=== PATIENT | female | born 1990 | race Caucasian/White ===

== ENCOUNTER 2017-03-21 17:16 | Emergency (ER) | payer MEDICAID, OTHER ==
[~2017-03-21] VITALS: Ht 154.9 cm; Wt 64.2 kg
[~2017-03-21 17:16] MED LIST: PREN1TAB49 PO
[2017-03-21 17:22] VITALS: Ht 154.9 cm; Wt 64.2 kg
[2017-03-21] MEDS ORDERED: SOD CHLORIDE 0.9% 1,000 ML IV STA (17:54)
[2017-03-21] MEDS ORDERED: ACETAMINOPHEN 325 MG TAB PO STA (17:54)
[2017-03-21] MEDS ORDERED: FAMOTIDINE 20 MG INJ IV ONE (18:00)
[2017-03-21 18:26] LABS: BASOPHILS % 0.1 % (0.0-2.0); EOSINOPHILS # 0.1 10^3/ul (0.0-0.5); EOSINOPHILS % 0.5 % (0.0-7.0); HEMOGLOBIN 11.8 g/dl (12.0-16.0); LYMPHOCYTES % 19.9 % (15.0-51.0); MEAN CORPUSCULAR HEMOGLOBIN 29.1 pg (29.0-33.0); MEAN CORPUSCULAR HGB CONC 34.7 g/dl (32.0-37.0); MEAN CORPUSCULAR VOLUME 83.7 fl (82.0-101.0); MEAN PLATELET VOLUME 11.1 fl (7.4-10.4); MONOCYTE # 0.6 10^3/ul (0.3-0.9); MONOCYTES % 5.5 % (0.0-11.0); NEUTROPHIL # 7.4 10^3/ul (1.6-7.5); NEUTROPHILS % 73.6 % (39.0-77.0); PLATELET COUNT 175 10^3/UL (140-415); RED BLOOD COUNT 4.06 10^6/ul (4.20-5.40); RED CELL DISTRIBUTION WIDTH 11.7 % (11.5-14.5)
--- NOTE | 2017-03-21 18:28 | RADRPT ---
PROCEDURE: US OB. CLINICAL INDICATION: left upper quadrant abdominal pain TECHNIQUE: Multiple sonographic images of the pelvis were obtained. The images were reviewed on a PACS workstation. COMPARISON: No prior studies are available for comparison. FINDINGS: There is a single viable intrauterine gestation. Cardiac activity is present with 137 beats per min jason There is a vertex presentation. Measurements were made in order to determine age. The results are as follows: BPD =3.6 cm 17 weeks 0 days HC =12.9 cm 16 weeks 4 days AC =11.2 cm 17 weeks 0 days FL =2.3 cm 17 weeks 0 days Estimated gestational age of approximately 16 weeks 6 days The estimated date of delivery is 08/30/2017 The EFW = 174 g plus/minus 26 g . The anatomy is somewhat limited by the early gestational age. The placenta is posterior. There is no evidence for an abruption or placenta previa. There is a normal amount of amniotic fluid with an MVP of 4.7 cm. There are no adnexal masses.. IMPRESSION: 1. Single viable intrauterine gestation of approximately 16 weeks 6 days. The estimated date of de livery is 08/30/2017. 2. The anatomy is somewhat limited by the early gestational age. A followup study in 6 - 8 we eks is recommended. RPTAT:AAJJ Physician El Date Time Electronically viewed and signed by Physician El on 03/21/2017 18:28 /
[2017-03-21 18:38] LABS: ADD UMIC NO; UR ASCORBIC ACID NEGATIVE (NEGATIVE); UR BACTERIA FEW /HPF (NONE SEEN); UR BILIRUBIN (Dip) NEGATIVE (NEGATIVE); UR BLOOD (Dip) NEGATIVE (NEGATIVE); UR CLARITY SLIGHTLY CLOUDY (CLEAR); UR COLOR YELLOW (YELLOW); UR GLUCOSE (Dip) NEGATIVE (NEGATIVE); UR KETONES (Dip) NEGATIVE (NEGATIVE); UR LEUKOCYTE ESTERASE (Dip) NEGATIVE Leu/ul (NEGATIVE); UR NITRITE (Dip) NEGATIVE (NEGATIVE); UR RBC 2 /HPF (0-5); UR SPECIFIC GRAVITY (Dip) 1.023 (1.003-1.030); UR SQUAMOUS EPITHELIAL CELL FEW /HPF (FEW); UR TOTAL PROTEIN (Dip) NEGATIVE (NEGATIVE); UR UROBILINOGEN (Dip) NEGATIVE (NEGATIVE)
[2017-03-21 18:46] LABS: ALBUMIN/GLOBULIN RATIO 1.25; BILIRUBIN,INDIRECT 0.1 mg/dl (0-1.1); BILIRUBIN,TOTAL 0.1 mg/dl (0.2-1.3); CALCIUM 9.8 mg/dl (8.4-10.2); CREATININE 0.5 mg/dl (0.44-1.00); POTASSIUM 4.4 mmol/L (3.5-5.1); TOTAL PROTEIN 7.2 g/dl (6.1-8.1)
[2017-03-21] MEDS ORDERED: ACET500C5 PO (19:49)
--- NOTE | 2017-03-21 19:54 | ERD ---
ER Documentation Chief Complaint Chief Complaint left abdominal pain, HPI 26-year-old female patient with no significant past medical history is currently and is a presents to the ED complaining of left upper quadrant abdominal pain that started 6 days ago. Patient reports it was a gradual onset and is intermittent. Reports that she had episodes of nausea and few episodes of nonbilious nonbloody vomiting that occurred ever since her until 3 weeks ago. States that her last menstruation was on November. Denies any smoking, alcohol use, drug use. Denies any chest pain, shortness of breath, fever, chills, hematemesis, melena. ROS All systems reviewed and are negative except as per history of present illness. Medications Home Meds Active Scripts Acetaminophen* (Tylophen*) 500 Mg Capsule, 1 CAP PO Q6H Y for PAIN AND OR ELEVATED TEMP, #20 CAP Prov:QUENTIN HAYDEN PA-C 03/21/17 Reported Medications Vits W-Ca,Fe,Fa(<1MG) () 1 Tab Tablet, 1 TAB PO DAILY 06/19/11 Allergies Allergies: Coded Allergies: No Known Allergy (Unverified , 06/19/11) PMhx/Soc Medical and Surgical Hx: pt denies Medical Hx, pt denies Surgical Hx Hx Alcohol Use: No Hx Substance Use: No Hx Tobacco Use: No Smoking Status: Never smoker Physical Exam Vitals Vital Signs Date Time Temp Pulse Resp B/P Pulse Ox O2 Delivery O2 Flow Rate FiO2 03/21/17 20:26 71 16 108/63 99 Room Air 03/21/17 17:22 98.2 92 18 111/67 99 Physical Exam Const: [id number], well-nourished. In no acute distress. Head: Atraumatic, normocephalic Eyes: Normal Conjunctiva without injection. No purulent discharge. ENT: Normal external ear, nose. Moist oropharynx without tonsillar exudates. Non -erythematous pharynx. Uvula midline. No drooling. No trismus. Neck: No cervical midline tenderness. Full range of motion. No meningismus. No cervical lymphadenopathy. No JVD. Resp: Clear to auscultation bilaterally. No wheezing, rhonchi, rales, or crackles. No accessory muscle use. No retractions. Cardio: Regular rate and rhythm. No murmurs, rubs or gallops. Abd: Soft, nontender, non distended. Normal bowel sounds. No palpable masses. No rebound tenderness. No guarding. Negative McBurney's point. Negative psoas sign. Negative obturator sign. Skin: No petechiae or rashes Back: No midline tenderness. No CVA tenderness. Ext: No cyanosis, or edema. Neur: Awake and alert. Normal gait. Normal coordination. Psych: Normal Mood and Affect Results 24 hrs Laboratory Tests Test 03/21/17 18:15 White Blood Count 10.010^3/ul Red Blood Count 4.0610^6/ul Hemoglobin 11.8g/dl Hematocrit 34.0% Mean Corpuscular Volume 83.7fl Mean Corpuscular Hemoglobin 29.1pg Mean Corpuscular Hemoglobin Concent 34.7g/dl Red Cell Distribution Width 11.7% Platelet Count 22533^3/UL Mean Platelet Volume 11.1fl Neutrophils % 73.6% Lymphocytes % 19.9% Monocytes % 5.5% Eosinophils % 0.5% Basophils % 0.1% Nucleated Red Blood Cells % 0.0/100WBC Neutrophils # 7.410^3/ul Lymphocytes # 2.010^3/ul Monocytes # 0.610^3/ul Eosinophils # 0.110^3/ul Basophils # 0.010^3/ul Nucleated Red Blood Cells # 0.010^3/ul Urine Color YELLOW Urine Clarity SLIGHTLY CLOUDY Urine pH 5.0 Urine Specific Perkins 1.023 Urine Ketones NEGATIVEmg/dL Urine Nitrite NEGATIVEmg/dL Urine Bilirubin NEGATIVEmg/dL Urine Urobilinogen NEGATIVEmg/dL Urine Leukocyte Esterase NEGATIVELeu/ul Urine Microscopic RBC 2/HPF Urine Microscopic WBC 1/HPF Urine Squamous Epithelial Cells FEW/HPF Urine Bacteria FEW/HPF Urine Hemoglobin NEGATIVEmg/dL Urine Glucose NEGATIVEmg/dL Urine Total Protein NEGATIVEmg/dl Sodium Level 138mmol/L Potassium Level 4.4mmol/L Chloride Level 104mmol/L Carbon Dioxide Level 26mmol/L Anion Gap 12 Blood Urea Nitrogen 12mg/dl Creatinine 0.50mg/dl Glucose Level 86mg/dl Calcium Level 9.8mg/dl Total Bilirubin 0.1mg/dl Direct Bilirubin 0.00mg/dl Indirect Bilirubin 0.1mg/dl Aspartate Amino Transf (AST/SGOT) 43IU/L Alanine Aminotransferase (ALT/SGPT) 66IU/L Alkaline Phosphatase 49IU/L Total Protein 7.2g/dl Albumin 4.0g/dl Globulin 3.20g/dl Albumin/Globulin Ratio 1.25 Lipase 79U/L Beta HCG, Quantitative 88103.0mIU/ml Current Medications Medications (Trade) Dose Ordered Sig/Yolanda Route PRN Reason Start Time Stop Time Status Last Admin Dose Admin Sodium Chloride (NS) 1,000 ml @ 1,000 mls/hr Q1H STAT IV 03/21/17 17:54 03/21/17 18:53 DC 03/21/17 18:49 Acetaminophen (Tylenol Tab) 650 mg ONCE STAT PO 03/21/17 17:54 03/21/17 17:56 DC 03/21/17 18:48 Famotidine (Pepcid Iv) 20 mg ONCE ONCE IV 03/21/17 18:00 03/21/17 18:01 DC 03/21/17 18:48 Procedures/MDM 26-year-old female patient with no significant past medical history is currently and is a presents to the ED complaining of left upper quadrant abdominal pain that started 6 days ago. Patient is afebrile and nontoxic-appearing. Patient has normal vital signs. An ultrasound, beta-hCG, CBC, type and RH, UA was ordered to evaluate patient. Patient was given 1 L normal saline, 20 mg IV famotidine, Tylenol here in the ED with improvement of her symptoms. CBC: No evidence of severe infection or anemia Urine: No elevation in nitrites, leukocyte esterase, hematuria. No evidence of UTI Rh: O positive No indication for Rhogam at this time. beta Hc PROCEDURE: US OB. CLINICAL INDICATION: left upper quadrant abdominal pain TECHNIQUE: Multiple sonographic images of the pelvis were obtained. The images were reviewed on a PACS workstation. COMPARISON: No prior studies are available for comparison. FINDINGS: There is a single viable intrauterine gestation. Cardiac activity is present with 137 beats per minute There is a vertex presentation. Measurements were made in order to determine age. The results are as follows: BPD = 3.6 cm 17 weeks 0 days HC = 12.9 cm 16 weeks 4 days AC = 11.2 cm 17 weeks 0 days FL = 2.3 cm 17 weeks 0 days Estimated gestational age of approximately 16 weeks 6 days The estimated date of delivery is 08/30/2017 The EFW = 174 g plus/minus 26 g . The anatomy is somewhat limited by the early gestational age. The placenta is posterior. There is no evidence for an abruption or placenta previa. There is a normal amount of amniotic fluid with an MVP of 4.7 cm. There are no adnexal masses.. IMPRESSION: 1. Single viable intrauterine gestation of approximately 16 weeks 6 days. The estimated date of delivery is 08/30/2017. 2. The anatomy is somewhat limited by the early gestational age. A followup study in 6 - 8 weeks is recommended. RPTAT:AAJJ Physician El Date Time Electronically viewed and signed by Mykel Valencia Physician on 03/21/2017 18: 28 No vaginal bleeding here in the ED. Patient has a single IUP. Low suspicion for symptomatic anemia, ectopic , sepsis, PID, pancreatitis, gastritis , cholecystitis, placenta previa, placenta abruptio, appendicitis, ovarian torsion, tubo-ovarian abscess, surgical abdomen, or other emergent conditions. Patient was educated that there is a risk for threatened . Medications: Tylenol Patient to follow up with [facility] in 2 days for further evaluation and treatment. Patient is to return sooner to the ED for any worsening symptoms. Patient's questions were answered. Patient understood and agreed with discharge plan. Departure Diagnosis: Primary Impression: Abdominal pain Abdominal location: unspecified location Qualified Code: R10.9 - Abdominal pain, unspecified abdominal location Condition: Stable Patient Instructions: Abdominal Pain, Early Referrals: COMMUNITY CLINICS YOU HAVE RECEIVED A MEDICAL SCREENING EXAM AND THE RESULTS INDICATE THAT YOU DO NOT HAVE A CONDITION THAT REQUIRES URGENT TREATMENT IN THE EMERGENCY DEPARTMENT. FURTHER EVALUATION AND TREATMENT OF YOUR CONDITION CAN WAIT UNTIL YOU ARE SEEN IN YOUR DOCTORS OFFICE WITHIN THE NEXT 1-2 DAYS. IT IS YOUR RESPONSIBILITY TO MAKE AN APPOINTMENT FOR FOLOW-UP CARE. IF YOU HAVE A PRIMARY DOCTOR --you should call your primary doctor and schedule an appointment IF YOU DO NOT HAVE A PRIMARY DOCTOR YOU CAN CALL OUR PHYSICIAN REFERRAL HOTLINE AT IF YOU CAN NOT AFFORD TO SEE A PHYSICIAN YOU CAN CHOSE FROM THE FOLLOWING COMMUNITY CLINICS [facility] [address] [facility] [address] [facility] [address] [facility] [address] [facility] [phone] [facility]. [facility] [address] [facility]. [facility] YOU HAVE RECEIVED A MEDICAL SCREENING EXAM AND THE RESULTS INDICATE THAT YOU DO NOT HAVE A CONDITION THAT REQUIRES URGENT TREATMENT IN THE EMERGENCY DEPARTMENT. FURTHER EVALUATION AND TREATMENT OF YOUR CONDITION CAN WAIT UNTIL YOU ARE SEEN IN YOUR DOCTORS OFFICE WITHIN THE NEXT 1-2 DAYS. IT IS YOUR RESPONSIBILITY TO MAKE AN APPOINTMENT FOR FOLOW-UP CARE. IF YOU HAVE A PRIMARY DOCTOR --you should call your primary doctor and schedule and appointment IF YOU DO NOT HAVE A PRIMARY DOCTOR YOU CAN CALL OUR PHYSICIAN REFERRAL HOTLINE AT . IF YOU CAN NOT AFFORD TO SEE A PHYSICIAN YOU CAN CHOSE FROM THE FOLLOWING [facility] INSTITUTIONS: [facility] [address] [place] [address] [facility] [address] [place] [address] [facility] [address] [place] [address] [facility] URGENT CARE/SPECIALTIES [facility] [place] [address] [facility] [address] [place], [place] [id number] OFFICE FAX [place] [place] [address] [address] [address] [place] [id number] [address]ARD[address] [place] [address] [facility], [address], [facility] [address] [address] [address] [place] [address] [facility] [address] [place] [id number] [facility] [id number] - MANDI [place]GUY[place] [address], [facility] [address] [address]ES, [place] [address] [facility] [address], [facility] [address] [address]AE[address], [facility] [address] [place] [address] [facility] Hours: 8:00 am - 5:00 pm Additional Instructions: Call your primary care doctor TOMORROW for an appointment during the next 2-3 days for a referral to see an [facility].See the doctor sooner or return here if your condition worsens before your appointment time. QUENTIN HAYDEN PA-C Mar 21, 2017 19:54 QUENTIN HAYDEN PA-C Mar 21, 2017 19:54
[2017-03-21 20:26] VITALS: BP 108/63; PULSE 71; RESP 16
== END 2017-03-21 20:26 | disposition home or self-care (01) ==
LOC: FTE 17:16
DX: O26.892 Other specified pregnancy related conditions, second trimester (principal); R10.12 Left upper quadrant pain; R10.2 Pelvic and perineal pain; Z3A.16 16 weeks gestation of pregnancy
CPT/HCPCS: 76805; 80053; 81001; 83690; 84702; 85025; 86900; 86901; 96374; 99285; J7030; 81003